=== PATIENT | female | born 2000 | race Two or more races ===

== ENCOUNTER 2021-02-15 22:24 | Emergency (ER) | payer OTHER ==
[~2021-02-15] VITALS: Ht 162.6 cm; Wt 54.4 kg
[2021-02-16] MEDS ORDERED: ACETAMINOPHEN650 M2 PO (02:28)
== END 2021-02-16 02:35 | disposition home or self-care (01) ==
LOC: ER 22:24
DX: O20.9 Hemorrhage in early pregnancy, unspecified (principal); Z3A.01 Less than 8 weeks gestation of pregnancy